=== PATIENT | female | born 1955 | race Caucasian/White ===

== ENCOUNTER 2019-01-05 12:15 | Inpatient (IN) | payer OTHER ==
[2019-01-05 12:54] LABS: WHITE BLOOD COUNT 8.9 10^3/ul (4.8-10.8)
[2019-01-05 12:54] LABS: ABNORMAL IP MESSAGE 1; HEMATOCRIT 21.3 % (37.0-47.0); MEAN CORPUSCULAR HEMOGLOBIN 34.9 pg (29.0-33.0); MEAN CORPUSCULAR HGB CONC 30.5 g/dl (32.0-37.0); MEAN CORPUSCULAR VOLUME 114.5 fl (82.0-101.0); MEAN PLATELET VOLUME 9.5 fl (7.4-10.4); PLATELET COUNT 185 10^3/UL (140-415); RED BLOOD COUNT 1.86 10^6/ul (4.20-5.40); RED CELL DISTRIBUTION WIDTH 14.8 % (11.5-14.5)
[2019-01-05 13:01] LABS: ADD MAN DIFF? YES; HEMOGLOBIN 6.5 g/dl (12.0-16.0); POSITIVE DIFF @See below
[2019-01-05 13:10] LABS: PROTIME 18.2 Sec (11.9-14.9); PT RATIO 1.4
[2019-01-05 13:11] LABS: PARTIAL THROMBOPLASTIN TIME 40.4 Sec (23.0-35.0)
[2019-01-05 13:39] LABS: ANISOCYTOSIS 1+ (0-0); BAND NEUTROPHILS % (M) 1 % (0-4); EOSINOPHILS % (M) 28 % (0-7); LYMPHOCYTES #M 2.5 10^3/ul (0.8-2.9); LYMPHOCYTES % (M) 29 % (15-51); MONOCYTE #M 0.2 10^3/ul (0.3-0.9); MONOCYTES % (M) 3 % (0-11); PLATELET ESTIMATE NORMAL; POIKILOCYTOSIS 1+ (0-0); POLYCHROMASIA 3+ (0-0); SEG NEUT #M 3.5 10^3/ul (1.6-7.5); SEGMENTED NEUTROPHILS (M) % 39 % (39-77); SMUDGE%M 3 % (0-0)
[2019-01-05 14:44] LABS: ALANINE AMINOTRANSFERASE 13 IU/L (13-69); ALBUMIN 2.9 g/dl (3.3-4.9); ALBUMIN/GLOBULIN RATIO 0.76; ALKALINE PHOSPHATASE 90 IU/L (42-121); ANION GAP 8 (5-13); ASPARTATE AMINO TRANSFERASE 31 IU/L (15-46); BILIRUBIN,INDIRECT 0.2 mg/dl (0-1.1); BILIRUBIN,TOTAL 0.2 mg/dl (0.2-1.3); BLOOD UREA NITROGEN 30 mg/dl (7-20); CALCIUM 9.3 mg/dl (8.4-10.2); CARBON DIOXIDE 27 mmol/L (21-31); CHLORIDE 104 mmol/L (97-110); CREATININE 5.48 mg/dl (0.44-1.00); Estimated GFR 8 mL/min (>60); GLUCOSE 91 mg/dl (70-220); POTASSIUM 5.6 mmol/L (3.5-5.1); SODIUM 139 mmol/L (135-144); TOTAL PROTEIN 6.7 g/dl (6.1-8.1)
[2019-01-05 14:55] LABS: TROPONIN-I < 0.012 ng/ml (0.000-0.120)
[2019-01-05] MEDS ORDERED: DEXTROSE 50% 50 ML SYRINGE IV ×3 (15:30→17:00)
[2019-01-05] MEDS: DEXTROSE 50% 50 ML SYRINGE IV (16:02)
[2019-01-05] MEDS: INSULIN REGULAR, HUMAN 100 UNIT/1 ML 3ML VIAL IVP (16:05)
[2019-01-05] MEDS: ALBUTEROL 0.5% (NEB) 2.5 MG/0.5 ML AMP INH (16:28)
[2019-01-05] MEDS ORDERED: DOCUSATE SODIUM 100 MG CAP PO (16:30)
[2019-01-05] MEDS ORDERED: ONDANSETRON 4 MG INJ IV (16:30)
[2019-01-05] MEDS ORDERED: morphine 2 MG INJ IV (16:30)
[2019-01-05] MEDS ORDERED: ACETAMINOPHEN 325 MG TAB PO (16:30)
[2019-01-05] MEDS ORDERED: NITROGLYCERIN (SL) 0.4 MG TAB SL (16:30)
[2019-01-05] MEDS ORDERED: ALBUTEROL/IPRATROPIUM (NEB) 3 ML AMP HHN (16:30)
[2019-01-05] MEDS ORDERED: hydrALAzine 20 MG INJ IV (16:30)
[2019-01-05] MEDS ORDERED: NACL 0.9% 3 ML SYG IV (16:30)
[2019-01-05] MEDS ORDERED: GLUCOSE GEL 15 GRAM TUBE BUCCAL (17:00)
[2019-01-05] MEDS ORDERED: GLUCOSE GEL 15 GRAM TUBE PO ×2 (17:00)
[2019-01-05] MEDS ORDERED: GLUCAGON 1 MG INJ IM (17:00)
[2019-01-05 17:02] LABS: FREE T4 (FREE THYROXINE) 0.97 ng/dl (0.78-2.44)
[2019-01-05] MEDS: INSULIN ASPART [NOVOLOG] 3 ML PEN SC ×2 (18:19→21:00)
[2019-01-05] MEDS: EPOETIN ALFA-EPBX (NON-ESRD 10,000 UNIT/ML VIAL SC (18:22)
[2019-01-05 18:41] LABS: HEMATOCRIT 22.8 % (37.0-47.0)
[2019-01-05 18:51] LABS: HEMOGLOBIN 6.7 g/dl (12.0-16.0)
[2019-01-05 19:06] LABS: IRON 103 ug/dl (35-150)
[2019-01-05 19:15] LABS: % IRON SATURATION 55 % SAT (22-52); TOTAL IRON BINDING CAPACITY 187 ug/dl (241-421)
[2019-01-05 19:21] LABS: LACTIC ACID 4.4 mmol/L (0.5-2.0)
[2019-01-05 20:40] LABS: HEPATITIS B SURFACE ANTIGEN NEGATIVE (NEGATIVE)
[2019-01-05] MEDS: TRIAMCINOLONE ACET 0.1% 15 GM CR TOP (22:22)
[2019-01-05] MEDS: HEPARIN 5,000 UNIT/1 ML VIAL SC (22:34)
[2019-01-05 23:59] LABS: LACTIC ACID 1.2 mmol/L (0.5-2.0)
[2019-01-06] MEDS: INSULIN ASPART [NOVOLOG] 3 ML PEN SC ×5 (01:00→21:00)
[2019-01-06] MEDS: ACCU-CHEK XX (02:00)
[2019-01-06 02:37] LABS: IMMEDIATE SPIN CROSSMATCH 1 1
[2019-01-06] MEDS: HEPARIN 1000 UNITS/ML 10 ML INJ CATHETER (04:58)
[2019-01-06] MEDS: LORAZEPAM 2 MG INJ IV ×3 (05:18→23:20)
[2019-01-06] MEDS: PANTOPRAZOLE 40 MG INJ IV ×2 (06:00→08:45)
[2019-01-06 06:35] LABS: ADD MAN DIFF? NO
[2019-01-06 06:41] LABS: ABNORMAL IP MESSAGE 1; BASOPHILS % 0.3 % (0.0-2.0); EOSINOPHILS # 2.3 10^3/ul (0.0-0.5); EOSINOPHILS % 19.4 % (0.0-7.0); HEMATOCRIT 27.8 % (37.0-47.0); HEMOGLOBIN 8.6 g/dl (12.0-16.0); LYMPHOCYTES # 1.6 10^3/ul (0.8-2.9); LYMPHOCYTES % 13.5 % (15.0-51.0); MEAN CORPUSCULAR HEMOGLOBIN 33.1 pg (29.0-33.0); MEAN CORPUSCULAR HGB CONC 30.9 g/dl (32.0-37.0); MEAN CORPUSCULAR VOLUME 106.9 fl (82.0-101.0); MEAN PLATELET VOLUME 9.1 fl (7.4-10.4); MONOCYTE # 0.6 10^3/ul (0.3-0.9); MONOCYTES % 4.7 % (0.0-11.0); NEUTROPHIL # 7.3 10^3/ul (1.6-7.5); NEUTROPHILS % 61.5 % (39.0-77.0); PLATELET COUNT 193 10^3/UL (140-415); RED CELL DISTRIBUTION WIDTH 18.6 % (11.5-14.5)
[2019-01-06 06:41] LABS: WHITE BLOOD COUNT 11.9 10^3/ul (4.8-10.8)
[2019-01-06 06:55] LABS: POSITIVE DIFF @See below
[2019-01-06 06:58] LABS: HEMOGLOBIN A1C 5.6 % (0-5.9)
[2019-01-06 07:12] LABS: ANION GAP 13 (5-13); BLOOD UREA NITROGEN 21 mg/dl (7-20); CALCIUM 9.2 mg/dl (8.4-10.2); CARBON DIOXIDE 25 mmol/L (21-31); CHLORIDE 102 mmol/L (97-110); CREATININE 4.49 mg/dl (0.44-1.00); Estimated GFR 10 mL/min (>60); GLUCOSE 161 mg/dl (70-220); PHOSPHORUS 3.4 mg/dl (2.5-4.9); POTASSIUM 4.7 mmol/L (3.5-5.1); SODIUM 140 mmol/L (135-144)
[2019-01-06 07:25] LABS: CHOLESTEROL 132 mg/dl (100-200)
[2019-01-06 07:25] LABS: CHOL/HDL RATIO 2.6 RATIO; HDL CHOLESTEROL 50 mg/dl (35-98); LDL CHOLESTEROL,CALCULATED 61 mg/dl; TRIGLYCERIDES 105 mg/dl (0-149)
[2019-01-06] MEDS: HEPARIN 5,000 UNIT/1 ML VIAL SC (08:43)
[2019-01-06] MEDS: TRIAMCINOLONE ACET 0.1% 15 GM CR TOP ×2 (08:44→22:04)
[2019-01-06] MEDS: MULTIVITAMINS THERAPEUTIC TAB PO (14:30)
[2019-01-06] MEDS: ZINC SULFATE 220 MG CAP PO (14:30)
[2019-01-06] MEDS: SEVELAMER CARBONATE 0.8 GM PKT PO (17:39)
[2019-01-06] MEDS: FERROUS SULFATE (EC) 325 MG TAB PO (22:04)
[2019-01-06] MEDS: ATORVASTATIN 10 MG TAB PO (22:04)
[2019-01-07] MEDS: BALSAM PERU/CASTOR OIL 60 GM TUBE TOP ×3 (00:07→21:27)
[2019-01-07] MEDS: PERMETHRIN 5% 60 GM CR TOP (00:07)
[2019-01-07] MEDS: IVERMECTIN 3 MG TAB PO (00:07)
[2019-01-07] MEDS: ACCU-CHEK XX (02:00)
[2019-01-07] MEDS: morphine 2 MG INJ IV (04:15)
[2019-01-07] MEDS: PANTOPRAZOLE 40 MG INJ IV (06:07)
[2019-01-07] MEDS: LORAZEPAM 2 MG INJ IV ×2 (06:08→16:03)
[2019-01-07] MEDS: LEVOTHYROXINE 150 MCG TAB PO (06:08)
[2019-01-07 06:37] LABS: ADD MAN DIFF? NO
[2019-01-07 06:39] LABS: WHITE BLOOD COUNT 11.3 10^3/ul (4.8-10.8)
[2019-01-07 06:39] LABS: ABNORMAL IP MESSAGE 1; BASOPHIL # 0.1 10^3/ul (0.0-0.1); BASOPHILS % 0.4 % (0.0-2.0); EOSINOPHILS # 2.1 10^3/ul (0.0-0.5); EOSINOPHILS % 18.3 % (0.0-7.0); HEMATOCRIT 27.6 % (37.0-47.0); HEMOGLOBIN 8.4 g/dl (12.0-16.0); LYMPHOCYTES # 2.4 10^3/ul (0.8-2.9); LYMPHOCYTES % 21.2 % (15.0-51.0); MEAN CORPUSCULAR HEMOGLOBIN 32.8 pg (29.0-33.0); MEAN CORPUSCULAR HGB CONC 30.4 g/dl (32.0-37.0); MEAN CORPUSCULAR VOLUME 107.8 fl (82.0-101.0); MONOCYTE # 0.8 10^3/ul (0.3-0.9); MONOCYTES % 6.7 % (0.0-11.0); NEUTROPHILS % 52.9 % (39.0-77.0); PLATELET COUNT 175 10^3/UL (140-415); RED BLOOD COUNT 2.56 10^6/ul (4.20-5.40); RED CELL DISTRIBUTION WIDTH 18.7 % (11.5-14.5)
[2019-01-07 06:46] LABS: POSITIVE DIFF @See below
[2019-01-07 07:00] LABS: ANION GAP 13 (5-13); BLOOD UREA NITROGEN 28 mg/dl (7-20); CALCIUM 10.1 mg/dl (8.4-10.2); CARBON DIOXIDE 26 mmol/L (21-31); CHLORIDE 106 mmol/L (97-110); CREATININE 6.35 mg/dl (0.44-1.00); Estimated GFR 7 mL/min (>60); GLUCOSE 123 mg/dl (70-220); POTASSIUM 5.2 mmol/L (3.5-5.1); SODIUM 145 mmol/L (135-144)
[2019-01-07] MEDS: INSULIN ASPART [NOVOLOG] 3 ML PEN SC ×4 (07:00→21:00)
[2019-01-07] MEDS: SEVELAMER CARBONATE 0.8 GM PKT PO ×3 (08:00→17:44)
[2019-01-07] MEDS: MULTIVITAMINS THERAPEUTIC TAB PO (09:00)
[2019-01-07] MEDS: ASPIRIN 81 MG TAB PO (09:00)
[2019-01-07] MEDS: FERROUS SULFATE (EC) 325 MG TAB PO ×2 (09:00→21:26)
[2019-01-07] MEDS: TRIAMCINOLONE ACET 0.1% 15 GM CR TOP (09:00)
[2019-01-07] MEDS: ZINC SULFATE 220 MG CAP PO (09:00)
[2019-01-07] MEDS: MULTIVITAMINS/MINERALS TAB PO (09:00)
[2019-01-07] MEDS: CHOLECALCIFEROL 1,000 UNIT TAB PO (09:00)
[2019-01-07] MEDS: FOLIC ACID 1 MG TAB PO (09:00)
[2019-01-07] MEDS: ASCORBIC ACID 500 MG TAB PO (09:00)
[2019-01-07 10:17] LABS: OCCULT BLOOD STOOL POSITIVE (NEGATIVE)
[2019-01-07] MEDS: ALBUMIN HUMAN 25% 100 ML IV (12:10)
[2019-01-07] MEDS ORDERED: morphine 2 MG INJ IV (14:30)
[2019-01-07] MEDS: HEPARIN 1000 UNITS/ML 10 ML INJ CATHETER (15:06)
[2019-01-07 16:18] LABS: AMMONIA < 9 umol/l (9-30)
[2019-01-07] MEDS ORDERED: LORAZEPAM 2 MG INJ IV (16:30)
[2019-01-07] MEDS: EPOETIN ALFA-EPBX (NON-ESRD 10,000 UNIT/ML VIAL SC (17:39)
[2019-01-07] MEDS: ATORVASTATIN 10 MG TAB PO (21:26)
[2019-01-08] MEDS: LORAZEPAM 2 MG INJ IV ×2 (01:36→12:13)
[2019-01-08] MEDS: ACCU-CHEK XX (02:00)
[2019-01-08] MEDS: HYDROCODONE/APAP (5/325) TAB PO (04:08)
[2019-01-08] MEDS: LEVOTHYROXINE 150 MCG TAB PO (06:35)
[2019-01-08] MEDS: PANTOPRAZOLE 40 MG INJ IV (06:35)
[2019-01-08 08:05] LABS: ADD MAN DIFF? NO
[2019-01-08 08:08] LABS: BASOPHIL # 0.1 10^3/ul (0.0-0.1); BASOPHILS % 0.5 % (0.0-2.0); EOSINOPHILS # 1.8 10^3/ul (0.0-0.5); HEMATOCRIT 28.1 % (37.0-47.0); HEMOGLOBIN 8.5 g/dl (12.0-16.0); LYMPHOCYTES # 2.4 10^3/ul (0.8-2.9); LYMPHOCYTES % 22.3 % (15.0-51.0); MEAN CORPUSCULAR HEMOGLOBIN 32.6 pg (29.0-33.0); MEAN CORPUSCULAR HGB CONC 30.2 g/dl (32.0-37.0); MEAN CORPUSCULAR VOLUME 107.7 fl (82.0-101.0); MEAN PLATELET VOLUME 9.1 fl (7.4-10.4); MONOCYTE # 0.8 10^3/ul (0.3-0.9); MONOCYTES % 7.6 % (0.0-11.0); NEUTROPHIL # 5.8 10^3/ul (1.6-7.5); NEUTROPHILS % 53.2 % (39.0-77.0); PLATELET COUNT 174 10^3/UL (140-415); RED BLOOD COUNT 2.61 10^6/ul (4.20-5.40); RED CELL DISTRIBUTION WIDTH 18.2 % (11.5-14.5)
[2019-01-08 08:08] LABS: WHITE BLOOD COUNT 10.9 10^3/ul (4.8-10.8)
[2019-01-08 08:29] LABS: INR 1.36; PROTIME 16.9 Sec (11.9-14.9); PT RATIO 1.3
[2019-01-08 08:31] LABS: ANION GAP 8 (5-13); BLOOD UREA NITROGEN 21 mg/dl (7-20); CALCIUM 9.6 mg/dl (8.4-10.2); CARBON DIOXIDE 32 mmol/L (21-31); CHLORIDE 99 mmol/L (97-110); CREATININE 4.22 mg/dl (0.44-1.00); Estimated GFR 11 mL/min (>60); GLUCOSE 155 mg/dl (70-220); SODIUM 139 mmol/L (135-144)
[2019-01-08 08:32] LABS: ALANINE AMINOTRANSFERASE 13 IU/L (13-69); ALBUMIN 3.7 g/dl (3.3-4.9); ALKALINE PHOSPHATASE 101 IU/L (42-121); ASPARTATE AMINO TRANSFERASE 21 IU/L (15-46); BILIRUBIN,INDIRECT 0.2 mg/dl (0-1.1); BILIRUBIN,TOTAL 0.2 mg/dl (0.2-1.3); TOTAL PROTEIN 7.3 g/dl (6.1-8.1)
[2019-01-08] MEDS: FOLIC ACID 1 MG TAB PO (08:44)
[2019-01-08] MEDS: TRIAMCINOLONE ACET 0.1% 15 GM CR TOP (08:46)
[2019-01-08] MEDS: CHOLECALCIFEROL 1,000 UNIT TAB PO (08:47)
[2019-01-08] MEDS: MULTIVITAMINS/MINERALS TAB PO (08:47)
[2019-01-08] MEDS: INSULIN ASPART [NOVOLOG] 3 ML PEN SC ×4 (08:47→20:49)
[2019-01-08] MEDS: ASPIRIN 81 MG TAB PO (08:47)
[2019-01-08] MEDS: FERROUS SULFATE (EC) 325 MG TAB PO ×2 (08:47→20:45)
[2019-01-08] MEDS: MULTIVITAMINS THERAPEUTIC TAB PO (08:47)
[2019-01-08] MEDS: ASCORBIC ACID 500 MG TAB PO (08:47)
[2019-01-08] MEDS: ZINC SULFATE 220 MG CAP PO (08:47)
[2019-01-08] MEDS: BALSAM PERU/CASTOR OIL 60 GM TUBE TOP ×2 (08:48→20:50)
[2019-01-08] MEDS: SEVELAMER CARBONATE 0.8 GM PKT PO ×3 (08:48→17:23)
[2019-01-08 14:52] LABS: FOLATE 8.4 ng/ml (2.8-20.0)
[2019-01-08] MEDS: SOD CHLORIDE 0.9% 250 ML IV (18:31)
[2019-01-08] MEDS: ATORVASTATIN 10 MG TAB PO (20:45)
[2019-01-09] MEDS: ACCU-CHEK XX (01:27)
[2019-01-09] MEDS: LORAZEPAM 2 MG INJ IV (05:13)
[2019-01-09] MEDS: PANTOPRAZOLE 40 MG INJ IV (05:13)
[2019-01-09 06:25] LABS: ADD MAN DIFF? NO
[2019-01-09 06:32] LABS: BASOPHIL # 0.1 10^3/ul (0.0-0.1); BASOPHILS % 0.4 % (0.0-2.0); EOSINOPHILS # 1.8 10^3/ul (0.0-0.5); EOSINOPHILS % 12.4 % (0.0-7.0); HEMATOCRIT 30.4 % (37.0-47.0); HEMOGLOBIN 9.3 g/dl (12.0-16.0); LYMPHOCYTES # 2.4 10^3/ul (0.8-2.9); MEAN CORPUSCULAR HGB CONC 30.6 g/dl (32.0-37.0); MEAN CORPUSCULAR VOLUME 107.8 fl (82.0-101.0); MEAN PLATELET VOLUME 9.5 fl (7.4-10.4); MONOCYTE # 0.9 10^3/ul (0.3-0.9); MONOCYTES % 6.6 % (0.0-11.0); NEUTROPHIL # 8.9 10^3/ul (1.6-7.5); PLATELET COUNT 190 10^3/UL (140-415); RED BLOOD COUNT 2.82 10^6/ul (4.20-5.40); RED CELL DISTRIBUTION WIDTH 17.6 % (11.5-14.5)
[2019-01-09 06:32] LABS: WHITE BLOOD COUNT 14.2 10^3/ul (4.8-10.8)
[2019-01-09] MEDS: LEVOTHYROXINE 150 MCG TAB PO (06:47)
[2019-01-09 06:54] LABS: ANION GAP 16 (5-13); BLOOD UREA NITROGEN 31 mg/dl (7-20); CALCIUM 9.6 mg/dl (8.4-10.2); CARBON DIOXIDE 24 mmol/L (21-31); CHLORIDE 102 mmol/L (97-110); CREATININE 5.57 mg/dl (0.44-1.00); Estimated GFR 8 mL/min (>60); GLUCOSE 197 mg/dl (70-220); POTASSIUM 4.5 mmol/L (3.5-5.1); SODIUM 142 mmol/L (135-144)
[2019-01-09] MEDS: INSULIN ASPART [NOVOLOG] 3 ML PEN SC ×4 (07:00→20:38)
[2019-01-09] MEDS: SEVELAMER CARBONATE 0.8 GM PKT PO ×3 (08:00→17:29)
[2019-01-09] MEDS: BALSAM PERU/CASTOR OIL 60 GM TUBE TOP ×2 (08:48→20:39)
[2019-01-09] MEDS: QUETIAPINE 100 MG TAB PO ×2 (09:57→20:37)
[2019-01-09] MEDS: HEPARIN 1000 UNITS/ML 10 ML INJ CATHETER (12:03)
[2019-01-09] MEDS: MULTIVITAMINS/MINERALS TAB PO (12:39)
[2019-01-09] MEDS: ZINC SULFATE 220 MG CAP PO (12:39)
[2019-01-09] MEDS: MULTIVITAMINS THERAPEUTIC TAB PO (12:40)
[2019-01-09] MEDS: FERROUS SULFATE (EC) 325 MG TAB PO ×2 (12:40→20:37)
[2019-01-09] MEDS: ASPIRIN 81 MG TAB PO (12:40)
[2019-01-09] MEDS: FOLIC ACID 1 MG TAB PO (12:40)
[2019-01-09] MEDS: CHOLECALCIFEROL 1,000 UNIT TAB PO (12:41)
[2019-01-09] MEDS: ASCORBIC ACID 500 MG TAB PO (12:53)
[2019-01-09] MEDS: EPOETIN ALFA-EPBX (NON-ESRD 10,000 UNIT/ML VIAL SC (16:21)
[2019-01-09] MEDS: BISACODYL 10 MG SUPP PR (17:33)
[2019-01-09] MEDS: ATORVASTATIN 10 MG TAB PO (20:37)
[2019-01-09] MEDS: HYDROCODONE/APAP (5/325) TAB PO (20:37)
[2019-01-10] MEDS: ACCU-CHEK XX (02:00)
[2019-01-10] MEDS: LEVOTHYROXINE 150 MCG TAB PO (06:21)
[2019-01-10] MEDS: PANTOPRAZOLE (EC) 40 MG TAB PO (06:21)
[2019-01-10 08:39] LABS: ADD MAN DIFF? NO
[2019-01-10] MEDS: MULTIVITAMINS/MINERALS TAB PO (08:45)
[2019-01-10] MEDS: SEVELAMER CARBONATE 0.8 GM PKT PO ×3 (08:45→17:17)
[2019-01-10] MEDS: ASPIRIN 81 MG TAB PO (08:45)
[2019-01-10] MEDS: ZINC SULFATE 220 MG CAP PO (08:45)
[2019-01-10] MEDS: ASCORBIC ACID 500 MG TAB PO (08:45)
[2019-01-10] MEDS: BALSAM PERU/CASTOR OIL 60 GM TUBE TOP ×2 (08:46→21:15)
[2019-01-10] MEDS: FERROUS SULFATE (EC) 325 MG TAB PO ×2 (08:46→21:14)
[2019-01-10] MEDS: CHOLECALCIFEROL 1,000 UNIT TAB PO (08:46)
[2019-01-10] MEDS: FOLIC ACID 1 MG TAB PO (08:46)
[2019-01-10 08:47] LABS: BASOPHIL # 0.1 10^3/ul (0.0-0.1); BASOPHILS % 0.5 % (0.0-2.0); EOSINOPHILS # 1.5 10^3/ul (0.0-0.5); EOSINOPHILS % 13.9 % (0.0-7.0); HEMATOCRIT 26.9 % (37.0-47.0); HEMOGLOBIN 8.1 g/dl (12.0-16.0); LYMPHOCYTES # 1.8 10^3/ul (0.8-2.9); LYMPHOCYTES % 16.4 % (15.0-51.0); MEAN CORPUSCULAR HEMOGLOBIN 33.2 pg (29.0-33.0); MEAN CORPUSCULAR HGB CONC 30.1 g/dl (32.0-37.0); MEAN CORPUSCULAR VOLUME 110.2 fl (82.0-101.0); MEAN PLATELET VOLUME 9.1 fl (7.4-10.4); MONOCYTE # 0.6 10^3/ul (0.3-0.9); MONOCYTES % 5.5 % (0.0-11.0); NEUTROPHIL # 6.9 10^3/ul (1.6-7.5); NEUTROPHILS % 63.2 % (39.0-77.0); PLATELET COUNT 167 10^3/UL (140-415); RED BLOOD COUNT 2.44 10^6/ul (4.20-5.40); RED CELL DISTRIBUTION WIDTH 17.5 % (11.5-14.5)
[2019-01-10 08:47] LABS: WHITE BLOOD COUNT 10.8 10^3/ul (4.8-10.8)
[2019-01-10] MEDS: INSULIN ASPART [NOVOLOG] 3 ML PEN SC ×4 (08:48→21:21)
[2019-01-10 09:01] LABS: ANION GAP 9 (5-13); BLOOD UREA NITROGEN 16 mg/dl (7-20); CALCIUM 9.7 mg/dl (8.4-10.2); CARBON DIOXIDE 29 mmol/L (21-31); CHLORIDE 105 mmol/L (97-110); CREATININE 3.47 mg/dl (0.44-1.00); Estimated GFR 13 mL/min (>60); GLUCOSE 141 mg/dl (70-220); POTASSIUM 4.3 mmol/L (3.5-5.1); SODIUM 143 mmol/L (135-144)
[2019-01-10] MEDS: ATORVASTATIN 10 MG TAB PO (21:14)
[2019-01-10] MEDS: QUETIAPINE 100 MG TAB PO (21:14)
[2019-01-10] MEDS: NA PHOSPHATE/BIPHOS 133 ML ENEMA PR (21:15)
[2019-01-10] MEDS: TRIAMCINOLONE ACET 0.1% 15 GM CR TOP (21:15)
[2019-01-11] MEDS: LORAZEPAM 2 MG INJ IV ×2 (00:48→11:18)
[2019-01-11] MEDS: ACCU-CHEK XX (02:00)
[2019-01-11] MEDS: HALOPERIDOL 5 MG INJ IM (03:28)
[2019-01-11] MEDS: DIPHENHYDRAMINE 50 MG INJ IV (03:35)
[2019-01-11] MEDS: PANTOPRAZOLE (EC) 40 MG TAB PO (06:21)
[2019-01-11] MEDS: LEVOTHYROXINE 150 MCG TAB PO (06:21)
[2019-01-11] MEDS: INSULIN ASPART [NOVOLOG] 3 ML PEN SC ×4 (07:00→21:21)
[2019-01-11 08:30] LABS: ADD MAN DIFF? NO
[2019-01-11 08:37] LABS: BASOPHILS % 0.3 % (0.0-2.0); EOSINOPHILS # 1.8 10^3/ul (0.0-0.5); EOSINOPHILS % 19.3 % (0.0-7.0); HEMATOCRIT 26.2 % (37.0-47.0); HEMOGLOBIN 7.9 g/dl (12.0-16.0); LYMPHOCYTES # 2.2 10^3/ul (0.8-2.9); LYMPHOCYTES % 23.2 % (15.0-51.0); MEAN CORPUSCULAR HEMOGLOBIN 33.5 pg (29.0-33.0); MEAN CORPUSCULAR HGB CONC 30.2 g/dl (32.0-37.0); MEAN PLATELET VOLUME 9.2 fl (7.4-10.4); MONOCYTE # 0.6 10^3/ul (0.3-0.9); MONOCYTES % 6.5 % (0.0-11.0); NEUTROPHIL # 4.7 10^3/ul (1.6-7.5); NEUTROPHILS % 50.2 % (39.0-77.0); PLATELET COUNT 163 10^3/UL (140-415); RED BLOOD COUNT 2.36 10^6/ul (4.20-5.40); RED CELL DISTRIBUTION WIDTH 17.6 % (11.5-14.5)
[2019-01-11 08:37] LABS: WHITE BLOOD COUNT 9.4 10^3/ul (4.8-10.8)
[2019-01-11 08:58] LABS: ANION GAP 12 (5-13); BLOOD UREA NITROGEN 27 mg/dl (7-20); CARBON DIOXIDE 29 mmol/L (21-31); CHLORIDE 104 mmol/L (97-110); CREATININE 5.35 mg/dl (0.44-1.00); Estimated GFR 8 mL/min (>60); GLUCOSE 142 mg/dl (70-220); POTASSIUM 4.3 mmol/L (3.5-5.1); SODIUM 145 mmol/L (135-144)
[2019-01-11] MEDS: BALSAM PERU/CASTOR OIL 60 GM TUBE TOP ×2 (09:21→22:28)
[2019-01-11] MEDS: FOLIC ACID 1 MG TAB PO (09:26)
[2019-01-11] MEDS: ZINC SULFATE 220 MG CAP PO (09:26)
[2019-01-11] MEDS: ASCORBIC ACID 500 MG TAB PO (09:26)
[2019-01-11] MEDS: MULTIVITAMINS/MINERALS TAB PO (09:26)
[2019-01-11] MEDS: SEVELAMER CARBONATE 0.8 GM PKT PO ×3 (09:26→17:10)
[2019-01-11] MEDS: FERROUS SULFATE (EC) 325 MG TAB PO ×2 (09:26→21:16)
[2019-01-11] MEDS: CHOLECALCIFEROL 1,000 UNIT TAB PO (09:26)
[2019-01-11] MEDS: ASPIRIN 81 MG TAB PO (09:26)
[2019-01-11] MEDS: TRIAMCINOLONE ACET 0.1% 15 GM CR TOP (12:10)
[2019-01-11 14:46] LABS: HEMATOCRIT 25.9 % (37.0-47.0); HEMOGLOBIN 7.7 g/dl (12.0-16.0)
[2019-01-11] MEDS ORDERED: SOD CHLORIDE 0.9% 250 ML IV* (16:14)
[2019-01-11] MEDS: MAGNESIUM HYDROXIDE 30ML CUP PO (17:10)
[2019-01-11] MEDS: ATORVASTATIN 10 MG TAB PO (21:16)
[2019-01-11] MEDS: QUETIAPINE 100 MG TAB PO (21:16)
[2019-01-11] MEDS: PERMETHRIN 5% 60 GM CR TOP (21:23)
[2019-01-12] MEDS: ACCU-CHEK XX (01:56)
[2019-01-12 04:09] LABS: IMMEDIATE SPIN CROSSMATCH 1 1
[2019-01-12] MEDS: PANTOPRAZOLE (EC) 40 MG TAB PO ×2 (06:00→09:23)
[2019-01-12] MEDS: HEPARIN 1000 UNITS/ML 10 ML INJ CATHETER (06:38)
[2019-01-12] MEDS: INSULIN ASPART [NOVOLOG] 3 ML PEN SC ×4 (08:11→21:00)
[2019-01-12] MEDS: ASPIRIN 81 MG TAB PO (09:22)
[2019-01-12] MEDS: MULTIVITAMINS/MINERALS TAB PO (09:23)
[2019-01-12] MEDS: LEVOTHYROXINE 150 MCG TAB PO (09:23)
[2019-01-12] MEDS: FOLIC ACID 1 MG TAB PO (09:23)
[2019-01-12] MEDS: SEVELAMER CARBONATE 0.8 GM PKT PO ×4 (09:23→17:38)
[2019-01-12] MEDS: FERROUS SULFATE (EC) 325 MG TAB PO ×2 (09:23→21:01)
[2019-01-12] MEDS: ZINC SULFATE 220 MG CAP PO (09:23)
[2019-01-12] MEDS: ASCORBIC ACID 500 MG TAB PO (09:23)
[2019-01-12] MEDS: CHOLECALCIFEROL 1,000 UNIT TAB PO (09:23)
[2019-01-12] MEDS: BALSAM PERU/CASTOR OIL 60 GM TUBE TOP ×2 (09:24→21:01)
[2019-01-12 10:14] LABS: ADD MAN DIFF? NO
[2019-01-12 10:18] LABS: BASOPHILS % 0.5 % (0.0-2.0); EOSINOPHILS # 1.5 10^3/ul (0.0-0.5); EOSINOPHILS % 18.1 % (0.0-7.0); HEMATOCRIT 31.6 % (37.0-47.0); HEMOGLOBIN 9.8 g/dl (12.0-16.0); LYMPHOCYTES # 1.2 10^3/ul (0.8-2.9); LYMPHOCYTES % 14.5 % (15.0-51.0); MEAN CORPUSCULAR HEMOGLOBIN 33.6 pg (29.0-33.0); MEAN CORPUSCULAR VOLUME 108.2 fl (82.0-101.0); MEAN PLATELET VOLUME 9.1 fl (7.4-10.4); MONOCYTE # 0.5 10^3/ul (0.3-0.9); MONOCYTES % 5.3 % (0.0-11.0); NEUTROPHIL # 5.2 10^3/ul (1.6-7.5); NEUTROPHILS % 61.1 % (39.0-77.0); PLATELET COUNT 162 10^3/UL (140-415); RED BLOOD COUNT 2.92 10^6/ul (4.20-5.40); RED CELL DISTRIBUTION WIDTH 18.2 % (11.5-14.5)
[2019-01-12 10:18] LABS: WHITE BLOOD COUNT 8.4 10^3/ul (4.8-10.8)
[2019-01-12 10:47] LABS: ANION GAP 8 (5-13); BLOOD UREA NITROGEN 14 mg/dl (7-20); CARBON DIOXIDE 26 mmol/L (21-31); CHLORIDE 107 mmol/L (97-110); CREATININE 3.11 mg/dl (0.44-1.00); Estimated GFR 15 mL/min (>60); GLUCOSE 260 mg/dl (70-220); POTASSIUM 4.1 mmol/L (3.5-5.1); SODIUM 141 mmol/L (135-144)
[2019-01-12] MEDS: LORAZEPAM 2 MG INJ IM (11:16)
[2019-01-12] MEDS: EPOETIN ALFA-EPBX (NON-ESRD 10,000 UNIT/ML VIAL SC (17:28)
[2019-01-12] MEDS: QUETIAPINE 100 MG TAB PO (21:01)
[2019-01-12] MEDS: ATORVASTATIN 10 MG TAB PO (21:01)
[2019-01-13] MEDS: ACCU-CHEK XX (02:00)
[2019-01-13] MEDS: LORAZEPAM 2 MG INJ IM ×2 (02:40→10:05)
[2019-01-13] MEDS: LEVOTHYROXINE 150 MCG TAB PO (06:02)
[2019-01-13] MEDS: PANTOPRAZOLE (EC) 40 MG TAB PO (06:02)
[2019-01-13] MEDS: INSULIN ASPART [NOVOLOG] 3 ML PEN SC ×2 (08:50→12:49)
[2019-01-13] MEDS: ZINC SULFATE 220 MG CAP PO (08:51)
[2019-01-13] MEDS: SEVELAMER CARBONATE 0.8 GM PKT PO ×2 (08:51→12:54)
[2019-01-13] MEDS: CHOLECALCIFEROL 1,000 UNIT TAB PO (08:51)
[2019-01-13] MEDS: FOLIC ACID 1 MG TAB PO (08:52)
[2019-01-13] MEDS: FERROUS SULFATE (EC) 325 MG TAB PO (08:52)
[2019-01-13] MEDS: ASCORBIC ACID 500 MG TAB PO (08:52)
[2019-01-13] MEDS: MULTIVITAMINS/MINERALS TAB PO (08:52)
[2019-01-13] MEDS: ASPIRIN 81 MG TAB PO (08:52)
[2019-01-13] MEDS: BALSAM PERU/CASTOR OIL 60 GM TUBE TOP (09:03)
[2019-01-13] MEDS: ALBUMIN HUMAN 25% 100 ML IV (11:12)
[2019-01-13] MEDS: HEPARIN 1000 UNITS/ML 10 ML INJ CATHETER (11:48)
[2019-01-13 15:13] LABS: ADD MAN DIFF? NO
[2019-01-13 15:15] LABS: BASOPHILS % 0.5 % (0.0-2.0); EOSINOPHILS # 1.6 10^3/ul (0.0-0.5); EOSINOPHILS % 20.2 % (0.0-7.0); HEMATOCRIT 31.4 % (37.0-47.0); HEMOGLOBIN 9.8 g/dl (12.0-16.0); LYMPHOCYTES # 1.5 10^3/ul (0.8-2.9); LYMPHOCYTES % 18.7 % (15.0-51.0); MEAN CORPUSCULAR HEMOGLOBIN 33.7 pg (29.0-33.0); MEAN CORPUSCULAR HGB CONC 31.2 g/dl (32.0-37.0); MEAN CORPUSCULAR VOLUME 107.9 fl (82.0-101.0); MEAN PLATELET VOLUME 9.8 fl (7.4-10.4); MONOCYTE # 0.6 10^3/ul (0.3-0.9); MONOCYTES % 7.2 % (0.0-11.0); NEUTROPHIL # 4.3 10^3/ul (1.6-7.5); PLATELET COUNT 194 10^3/UL (140-415); RED BLOOD COUNT 2.91 10^6/ul (4.20-5.40); RED CELL DISTRIBUTION WIDTH 18.6 % (11.5-14.5)
[2019-01-13 15:35] LABS: ANION GAP 8 (5-13); BLOOD UREA NITROGEN 8 mg/dl (7-20); CALCIUM 9.4 mg/dl (8.4-10.2); CARBON DIOXIDE 27 mmol/L (21-31); CHLORIDE 106 mmol/L (97-110); CREATININE 1.82 mg/dl (0.44-1.00); Estimated GFR 28 mL/min (>60); GLUCOSE 158 mg/dl (70-220); POTASSIUM 4.1 mmol/L (3.5-5.1); SODIUM 141 mmol/L (135-144)
== END 2019-01-13 16:00 | DRG 91 ==
LOC: 5EC 01-11 17:45 → TEL 01-06 09:16 → 5EC 01-11 23:05 → E/R 12:15 → 5EC 01-06 19:55 → TEL 15:45
PROC: 5A1D70Z Performance of Urinary Filtration, Intermittent, Less than 6 Hours Per Day (ICD-10-PCS; principal; 2019-01-06)
PROC: 30233N1 Transfusion of Nonautologous Red Blood Cells into Peripheral Vein, Percutaneous Approach (ICD-10-PCS; 2019-01-06)
DX: G92 Toxic encephalopathy (principal); N18.6 End stage renal disease; I12.0 Hypertensive chronic kidney disease with stage 5 chronic kidney disease or end stage renal disease; E44.0 Moderate protein-calorie malnutrition; E87.5 Hyperkalemia; F25.9 Schizoaffective disorder, unspecified; Z99.2 Dependence on renal dialysis; F41.9 Anxiety disorder, unspecified; I25.10 Atherosclerotic heart disease of native coronary artery without angina pectoris; E78.5 Hyperlipidemia, unspecified; B86 Scabies; E03.9 Hypothyroidism, unspecified; E11.22 Type 2 diabetes mellitus with diabetic chronic kidney disease; D63.1 Anemia in chronic kidney disease; Z68.21 Body mass index [BMI] 21.0-21.9, adult; T50.905A Adverse effect of unspecified drugs, medicaments and biological substances, initial encounter
CPT/HCPCS: 36430; 70450; 71045; 74018; 76705; 80048; 80053; 80061; 80076; 82140; 82270; 82607; 82728; 82746; 82962; 83036; 83540; 83605; 83735; 84100; 84439; 84443; 84484; 85014; 85018; 85025; 85610; 85730; 86644; 86850; 86900; 86901; 86920; 87040-91; 87045; 87340; 90935; 92526; 92610; 93005; 94664; 99285-25

== ENCOUNTER 2019-02-20 06:17 | Inpatient (IN) | payer OTHER, MEDICAID ==
[2019-02-20] MEDS: ONDANSETRON 4 MG INJ IV (07:26)
[2019-02-20] MEDS: morphine 4 MG/ML VIAL IV (07:27)
[2019-02-20] MEDS: SOD CHLORIDE 0.9% 500 ML IV ×5 (07:27→17:45)
[2019-02-20 07:40] LABS: ADD MAN DIFF? NO
[2019-02-20 07:43] LABS: BASOPHILS % 0.4 % (0.0-2.0); EOSINOPHILS % 0.4 % (0.0-7.0); HEMATOCRIT 43.6 % (37.0-47.0); HEMOGLOBIN 13.9 g/dl (12.0-16.0); LYMPHOCYTES # 0.6 10^3/ul (0.8-2.9); LYMPHOCYTES % 8.2 % (15.0-51.0); MEAN CORPUSCULAR HEMOGLOBIN 31.8 pg (29.0-33.0); MEAN CORPUSCULAR HGB CONC 31.9 g/dl (32.0-37.0); MEAN CORPUSCULAR VOLUME 99.8 fl (82.0-101.0); MEAN PLATELET VOLUME 9.4 fl (7.4-10.4); MONOCYTE # 0.1 10^3/ul (0.3-0.9); MONOCYTES % 1.6 % (0.0-11.0); NEUTROPHIL # 6.6 10^3/ul (1.6-7.5); PLATELET COUNT 134 10^3/UL (140-415); RED BLOOD COUNT 4.37 10^6/ul (4.20-5.40)
[2019-02-20 07:43] LABS: WHITE BLOOD COUNT 7.5 10^3/ul (4.8-10.8)
[2019-02-20 07:57] LABS: ALBUMIN 3.4 g/dl (3.3-4.9); ALBUMIN/GLOBULIN RATIO 0.73; ALKALINE PHOSPHATASE 159 IU/L (42-121); ANION GAP 21 (5-13); ASPARTATE AMINO TRANSFERASE 12 IU/L (15-46); BILIRUBIN,INDIRECT 0.1 mg/dl (0-1.1); BILIRUBIN,TOTAL 0.1 mg/dl (0.2-1.3); BLOOD UREA NITROGEN 90 mg/dl (7-20); CALCIUM 10.4 mg/dl (8.4-10.2); CARBON DIOXIDE 14 mmol/L (21-31); CHLORIDE 99 mmol/L (97-110); CREATININE 11.01 mg/dl (0.44-1.00); Estimated GFR 4 mL/min (>60); GLUCOSE 200 mg/dl (70-220); LIPASE 37 U/L (23-300); POTASSIUM 5.8 mmol/L (3.5-5.1); SODIUM 134 mmol/L (135-144)
[2019-02-20 07:58] LABS: ALANINE AMINOTRANSFERASE < 6 IU/L (13-69)
[2019-02-20 08:02] LABS: INR 1.19; PARTIAL THROMBOPLASTIN TIME 30.8 Sec (23.0-35.0); PROTIME 15.2 Sec (11.9-14.9); PT RATIO 1.2
[2019-02-20] MEDS ORDERED: ONDANSETRON 4 MG INJ IV ×2 (10:30→14:30)
[2019-02-20] MEDS ORDERED: ACETAMINOPHEN 325 MG TAB PO ×2 (10:30→14:30)
[2019-02-20] MEDS: CEFEPIME 2GM/50 ML (PMX) 50 ML IVPB (11:26)
[2019-02-20] MEDS: SODIUM CHLORIDE 0.9% 1L BAG IV* (11:26)
[2019-02-20] MEDS: ACETAMINOPHEN 650 MG SUPP PR (11:27)
[2019-02-20 11:31] LABS: ADD UMIC YES; UR ASCORBIC ACID NEGATIVE (NEGATIVE); UR BILIRUBIN (Dip) NEGATIVE (NEGATIVE); UR BLOOD (Dip) 2+ mg/dL (NEGATIVE); UR CLARITY TURBID (CLEAR); UR COLOR YELLOW (YELLOW); UR GLUCOSE (Dip) 1+ mg/dL (NEGATIVE); UR KETONES (Dip) NEGATIVE (NEGATIVE); UR LEUKOCYTE ESTERASE (Dip) 3+ Leu/ul (NEGATIVE); UR NITRITE (Dip) NEGATIVE (NEGATIVE); UR NONSQUAMOUS EPITHELIAL CELL 3 /HPF (NONE SEEN); UR RBC 124 /HPF (0-5); UR TOTAL PROTEIN (Dip) 2+ mg/dl (NEGATIVE); UR UROBILINOGEN (Dip) NEGATIVE (NEGATIVE); UR WBC > 182 /HPF (0-5)
[2019-02-20] MEDS: VANCOMYCIN 1 GM (PMX) 250 ML IVPB (12:03)
[2019-02-20 13:51] LABS: HEPATITIS B SURFACE ANTIGEN NEGATIVE (NEGATIVE)
[2019-02-20 13:54] LABS: LACTIC ACID 2.6 mmol/L (0.5-2.0)
[2019-02-20] MEDS: LIDOCAINE 1% (MPF) 5 ML VIAL SC (14:00)
[2019-02-20] MEDS: SOD CHLORIDE 0.9% 1,000 ML IV (14:00)
[2019-02-20] MEDS ORDERED: HYDROCODONE/APAP (5/325) TAB PO (14:30)
[2019-02-20] MEDS ORDERED: GLUCOSE GEL 15 GRAM TUBE PO ×2 (14:30)
[2019-02-20] MEDS ORDERED: ZOLPIDEM 5 MG TAB PO (14:30)
[2019-02-20] MEDS ORDERED: GLUCAGON 1 MG INJ IM (14:30)
[2019-02-20] MEDS ORDERED: GLUCOSE GEL 15 GRAM TUBE BUCCAL (14:30)
[2019-02-20] MEDS ORDERED: NACL 0.9% 3 ML SYG IV (14:30)
[2019-02-20] MEDS ORDERED: DOCUSATE SODIUM 100 MG CAP PO (14:30)
[2019-02-20] MEDS ORDERED: DEXTROSE 50% 50 ML SYRINGE IV ×2 (14:30)
[2019-02-20 14:44] LABS: LACTIC ACID 2.3 mmol/L (0.5-2.0)
[2019-02-20] MEDS: CEFTRIAXONE 1 GM/50 ML (PMX) 50 ML IVPB (17:48)
[2019-02-20] MEDS: INSULIN ASPART [NOVOLOG] 3 ML PEN SC ×2 (17:52→20:36)
[2019-02-20] MEDS: ALBUMIN HUMAN 25% 100 ML IV (20:16)
[2019-02-20] MEDS: LORAZEPAM 2 MG INJ IV (22:50)
[2019-02-20] MEDS: NA BICARBONATE 8.4% 50 ML SYG IV (22:50)
[2019-02-20] MEDS: HALOPERIDOL 5 MG INJ IM (23:22)
[2019-02-20 23:45] LABS: ANION GAP 12 (5-13); BLOOD UREA NITROGEN 93 mg/dl (7-20); CALCIUM 9.6 mg/dl (8.4-10.2); CARBON DIOXIDE 21 mmol/L (21-31); CHLORIDE 105 mmol/L (97-110); CREATININE 9.53 mg/dl (0.44-1.00); Estimated GFR 4 mL/min (>60); GLUCOSE 141 mg/dl (70-220); POTASSIUM 5.8 mmol/L (3.5-5.1); SODIUM 138 mmol/L (135-144)
[2019-02-21] MEDS: NORepinephrine 32 MG in DEXTROSE 5% 218 ML IV (00:42)
[2019-02-21] MEDS: LORAZEPAM 2 MG INJ IV ×2 (00:58→23:57)
[2019-02-21] MEDS: CALCIUM GLUCONATE 10% 1 GM in DEXTROSE 5% 100 ML IVPB (01:11)
[2019-02-21] MEDS: INSULIN ASPART [NOVOLOG] 3 ML PEN SC ×6 (01:18→21:16)
[2019-02-21] MEDS: ACCU-CHEK XX (01:19)
[2019-02-21] MEDS ORDERED: VANCOMYCIN IV PER PHARMACY XX (01:30)
[2019-02-21] MEDS: VANCOMYCIN 500 MG (PMX) 100 ML IVPB (02:52)
[2019-02-21 06:20] LABS: ADD MAN DIFF? NO
[2019-02-21 06:24] LABS: WHITE BLOOD COUNT 20.2 10^3/ul (4.8-10.8)
[2019-02-21 06:24] LABS: ABNORMAL IP MESSAGE 1; BASOPHIL # 0.1 10^3/ul (0.0-0.1); BASOPHILS % 0.3 % (0.0-2.0); EOSINOPHILS % 0.1 % (0.0-7.0); HEMATOCRIT 36.8 % (37.0-47.0); HEMOGLOBIN 11.8 g/dl (12.0-16.0); LYMPHOCYTES # 0.6 10^3/ul (0.8-2.9); LYMPHOCYTES % 2.7 % (15.0-51.0); MEAN CORPUSCULAR HEMOGLOBIN 31.7 pg (29.0-33.0); MEAN CORPUSCULAR HGB CONC 32.1 g/dl (32.0-37.0); MEAN CORPUSCULAR VOLUME 98.9 fl (82.0-101.0); MEAN PLATELET VOLUME 10.2 fl (7.4-10.4); MONOCYTE # 0.5 10^3/ul (0.3-0.9); MONOCYTES % 2.4 % (0.0-11.0); NEUTROPHIL # 18.9 10^3/ul (1.6-7.5); NEUTROPHILS % 93.9 % (39.0-77.0); PLATELET COUNT 136 10^3/UL (140-415); RED BLOOD COUNT 3.72 10^6/ul (4.20-5.40); RED CELL DISTRIBUTION WIDTH 17.4 % (11.5-14.5)
[2019-02-21 06:37] LABS: POSITIVE DIFF @See below
[2019-02-21 08:16] LABS: ANION GAP 15 (5-13); BLOOD UREA NITROGEN 95 mg/dl (7-20); CALCIUM 9.8 mg/dl (8.4-10.2); CARBON DIOXIDE 16 mmol/L (21-31); CHLORIDE 107 mmol/L (97-110); CREATININE 10.63 mg/dl (0.44-1.00); Estimated GFR 4 mL/min (>60); GLUCOSE 147 mg/dl (70-220); MAGNESIUM 2.4 mg/dl (1.7-2.5); SODIUM 138 mmol/L (135-144)
[2019-02-21] MEDS: ALTEPLASE (CATHFLO) 2 MG INJ CATHETER ×3 (09:56→18:24)
[2019-02-21] MEDS: CEFTRIAXONE 1 GM/50 ML (PMX) 50 ML IVPB (14:10)
[2019-02-21] MEDS: SOD CHLORIDE 0.9% 1,000 ML IV (14:10)
[2019-02-22] MEDS: ACCU-CHEK XX (02:16)
[2019-02-22] MEDS: INSULIN ASPART [NOVOLOG] 3 ML PEN SC ×6 (02:16→20:30)
[2019-02-22 05:05] LABS: ADD MAN DIFF? NO
[2019-02-22 05:14] LABS: ABNORMAL IP MESSAGE 1; BASOPHIL # 0.1 10^3/ul (0.0-0.1); BASOPHILS % 0.4 % (0.0-2.0); EOSINOPHILS # 0.1 10^3/ul (0.0-0.5); EOSINOPHILS % 1.1 % (0.0-7.0); HEMATOCRIT 37.5 % (37.0-47.0); HEMOGLOBIN 11.7 g/dl (12.0-16.0); LYMPHOCYTES # 1.1 10^3/ul (0.8-2.9); MEAN CORPUSCULAR HEMOGLOBIN 31.4 pg (29.0-33.0); MEAN CORPUSCULAR HGB CONC 31.2 g/dl (32.0-37.0); MEAN CORPUSCULAR VOLUME 100.5 fl (82.0-101.0); MONOCYTE # 0.7 10^3/ul (0.3-0.9); MONOCYTES % 5.5 % (0.0-11.0); NEUTROPHIL # 10.5 10^3/ul (1.6-7.5); NEUTROPHILS % 83.3 % (39.0-77.0); PLATELET COUNT 98 10^3/UL (140-415); RED BLOOD COUNT 3.73 10^6/ul (4.20-5.40); RED CELL DISTRIBUTION WIDTH 17.7 % (11.5-14.5)
[2019-02-22 05:14] LABS: WHITE BLOOD COUNT 12.6 10^3/ul (4.8-10.8)
[2019-02-22 05:34] LABS: ANION GAP 12 (5-13); BLOOD UREA NITROGEN 51 mg/dl (7-20); CALCIUM 9.6 mg/dl (8.4-10.2); CARBON DIOXIDE 22 mmol/L (21-31); CHLORIDE 103 mmol/L (97-110); Estimated GFR 7 mL/min (>60); GLUCOSE 152 mg/dl (70-220); MAGNESIUM 2.2 mg/dl (1.7-2.5); PHOSPHORUS 4.3 mg/dl (2.5-4.9); POTASSIUM 4.9 mmol/L (3.5-5.1); SODIUM 137 mmol/L (135-144)
[2019-02-22 05:35] LABS: POSITIVE DIFF @See below
[2019-02-22] MEDS: LORAZEPAM 2 MG INJ IV ×2 (10:22→21:44)
[2019-02-22] MEDS: HEPARIN 1000 UNITS/ML 10 ML INJ CATHETER ×2 (13:11→13:45)
[2019-02-22] MEDS: MUPIROCIN 2% 22 GM OINT TOP ×2 (13:47→23:47)
[2019-02-22] MEDS: SOD CHLORIDE 0.9% 1,000 ML IV (13:47)
[2019-02-22] MEDS: CEFTRIAXONE 1 GM/50 ML (PMX) 50 ML IVPB (13:48)
[2019-02-23] MEDS: INSULIN ASPART [NOVOLOG] 3 ML PEN SC ×6 (01:00→21:00)
[2019-02-23] MEDS: ACCU-CHEK XX (02:00)
[2019-02-23 05:32] LABS: ADD MAN DIFF? NO
[2019-02-23 05:35] LABS: WHITE BLOOD COUNT 8.9 10^3/ul (4.8-10.8)
[2019-02-23 05:35] LABS: ABNORMAL IP MESSAGE 1; BASOPHIL # 0.1 10^3/ul (0.0-0.1); BASOPHILS % 0.6 % (0.0-2.0); EOSINOPHILS # 0.2 10^3/ul (0.0-0.5); EOSINOPHILS % 2.7 % (0.0-7.0); HEMATOCRIT 37.5 % (37.0-47.0); HEMOGLOBIN 11.6 g/dl (12.0-16.0); LYMPHOCYTES # 1.5 10^3/ul (0.8-2.9); LYMPHOCYTES % 16.3 % (15.0-51.0); MEAN CORPUSCULAR HEMOGLOBIN 31.4 pg (29.0-33.0); MEAN CORPUSCULAR HGB CONC 30.9 g/dl (32.0-37.0); MEAN CORPUSCULAR VOLUME 101.6 fl (82.0-101.0); MEAN PLATELET VOLUME 9.9 fl (7.4-10.4); MONOCYTE # 0.6 10^3/ul (0.3-0.9); MONOCYTES % 6.4 % (0.0-11.0); NEUTROPHIL # 6.5 10^3/ul (1.6-7.5); NEUTROPHILS % 73.4 % (39.0-77.0); PLATELET COUNT 85 10^3/UL (140-415); RED BLOOD COUNT 3.69 10^6/ul (4.20-5.40); RED CELL DISTRIBUTION WIDTH 17.6 % (11.5-14.5)
[2019-02-23 05:40] LABS: POSITIVE DIFF @See below
[2019-02-23] MEDS: LORAZEPAM 2 MG INJ IV ×2 (05:42→21:55)
[2019-02-23 05:49] LABS: ANION GAP 9 (5-13); BLOOD UREA NITROGEN 28 mg/dl (7-20); CALCIUM 9.4 mg/dl (8.4-10.2); CARBON DIOXIDE 26 mmol/L (21-31); CHLORIDE 104 mmol/L (97-110); Estimated GFR 10 mL/min (>60); GLUCOSE 129 mg/dl (70-220); MAGNESIUM 2.1 mg/dl (1.7-2.5); PHOSPHORUS 3.7 mg/dl (2.5-4.9); POTASSIUM 4.1 mmol/L (3.5-5.1); SODIUM 139 mmol/L (135-144)
[2019-02-23] MEDS: MUPIROCIN 2% 22 GM OINT TOP ×2 (10:29→21:55)
[2019-02-23] MEDS: CEFTRIAXONE 1 GM/50 ML (PMX) 50 ML IVPB (15:23)
[2019-02-23] MEDS: HALOPERIDOL 5 MG INJ IM (23:12)
[2019-02-24] MEDS: HEPARIN 1000 UNITS/ML 10 ML INJ CATHETER (00:08)
[2019-02-24] MEDS: INSULIN ASPART [NOVOLOG] 3 ML PEN SC ×6 (01:00→21:01)
[2019-02-24] MEDS: ACCU-CHEK XX (02:06)
[2019-02-24 05:08] LABS: ADD MAN DIFF? NO
[2019-02-24 05:10] LABS: WHITE BLOOD COUNT 8.8 10^3/ul (4.8-10.8)
[2019-02-24 05:10] LABS: ABNORMAL IP MESSAGE 1; BASOPHIL # 0.1 10^3/ul (0.0-0.1); BASOPHILS % 0.8 % (0.0-2.0); EOSINOPHILS # 0.2 10^3/ul (0.0-0.5); EOSINOPHILS % 1.8 % (0.0-7.0); HEMATOCRIT 41.9 % (37.0-47.0); HEMOGLOBIN 12.9 g/dl (12.0-16.0); LYMPHOCYTES # 1.8 10^3/ul (0.8-2.9); LYMPHOCYTES % 20.1 % (15.0-51.0); MEAN CORPUSCULAR HEMOGLOBIN 31.8 pg (29.0-33.0); MEAN CORPUSCULAR HGB CONC 30.8 g/dl (32.0-37.0); MEAN CORPUSCULAR VOLUME 103.2 fl (82.0-101.0); MEAN PLATELET VOLUME 9.1 fl (7.4-10.4); MONOCYTE # 0.7 10^3/ul (0.3-0.9); MONOCYTES % 7.6 % (0.0-11.0); NEUTROPHIL # 6.1 10^3/ul (1.6-7.5); NEUTROPHILS % 69.1 % (39.0-77.0); PLATELET COUNT 67 10^3/UL (140-415); RED BLOOD COUNT 4.06 10^6/ul (4.20-5.40); RED CELL DISTRIBUTION WIDTH 17.7 % (11.5-14.5)
[2019-02-24 05:11] LABS: POSITIVE DIFF @See below
[2019-02-24 05:31] LABS: ANION GAP 15 (5-13); BLOOD UREA NITROGEN 16 mg/dl (7-20); CALCIUM 9.3 mg/dl (8.4-10.2); CARBON DIOXIDE 23 mmol/L (21-31); CHLORIDE 102 mmol/L (97-110); CREATININE 3.29 mg/dl (0.44-1.00); Estimated GFR 14 mL/min (>60); GLUCOSE 126 mg/dl (70-220); PHOSPHORUS 2.7 mg/dl (2.5-4.9); POTASSIUM 3.9 mmol/L (3.5-5.1); SODIUM 140 mmol/L (135-144)
[2019-02-24 05:33] LABS: VANCOMYCIN,RANDOM 7.1 ug/ml
[2019-02-24] MEDS: MUPIROCIN 2% 22 GM OINT TOP ×2 (08:22→20:58)
[2019-02-24] MEDS ORDERED: FAMOTIDINE 20 MG INJ (09:08)
[2019-02-24] MEDS: LIDOCAINE 1% (MPF) 5 ML VIAL (15:28)
[2019-02-24] MEDS: VANCOMYCIN 1 GM 250 ML IVPB (16:43)
[2019-02-24] MEDS: SOD CHLORIDE 0.9% 250 ML IV (20:55)
[2019-02-24 22:42] LABS: LACTIC ACID 1.5 mmol/L (0.5-2.0)
[2019-02-24 23:35] LABS: ANION GAP 9 (5-13); BLOOD UREA NITROGEN 27 mg/dl (7-20); CALCIUM 8.8 mg/dl (8.4-10.2); CARBON DIOXIDE 27 mmol/L (21-31); CHLORIDE 100 mmol/L (97-110); CREATININE 4.16 mg/dl (0.44-1.00); Estimated GFR 11 mL/min (>60); GLUCOSE 186 mg/dl (70-220); POTASSIUM 3.4 mmol/L (3.5-5.1); SODIUM 136 mmol/L (135-144)
[2019-02-25] MEDS: POTASSIUM CHLORIDE 20 MEQ POWDER FOR ORAL SOLN PO (00:24)
[2019-02-25] MEDS: INSULIN ASPART [NOVOLOG] 3 ML PEN SC ×6 (00:24→21:00)
[2019-02-25] MEDS: POTASSIUM CHLORIDE 100 ML IVPB ×2 (00:59→03:42)
[2019-02-25] MEDS: ACCU-CHEK XX (02:00)
[2019-02-25 07:12] LABS: ADD MAN DIFF? NO
[2019-02-25 07:15] LABS: WHITE BLOOD COUNT 6.7 10^3/ul (4.8-10.8)
[2019-02-25 07:15] LABS: ABNORMAL IP MESSAGE 1; BASOPHILS % 0.6 % (0.0-2.0); EOSINOPHILS # 0.2 10^3/ul (0.0-0.5); EOSINOPHILS % 2.4 % (0.0-7.0); HEMATOCRIT 39.7 % (37.0-47.0); HEMOGLOBIN 12.1 g/dl (12.0-16.0); LYMPHOCYTES # 1.5 10^3/ul (0.8-2.9); LYMPHOCYTES % 22.1 % (15.0-51.0); MEAN CORPUSCULAR HEMOGLOBIN 31.3 pg (29.0-33.0); MEAN CORPUSCULAR HGB CONC 30.5 g/dl (32.0-37.0); MEAN CORPUSCULAR VOLUME 102.6 fl (82.0-101.0); MONOCYTE # 0.5 10^3/ul (0.3-0.9); MONOCYTES % 7.3 % (0.0-11.0); NEUTROPHIL # 4.5 10^3/ul (1.6-7.5); NEUTROPHILS % 66.9 % (39.0-77.0); PLATELET COUNT 82 10^3/UL (140-415); RED BLOOD COUNT 3.87 10^6/ul (4.20-5.40); RED CELL DISTRIBUTION WIDTH 17.1 % (11.5-14.5)
[2019-02-25 07:20] LABS: POSITIVE DIFF @See below
[2019-02-25 07:45] LABS: ALANINE AMINOTRANSFERASE 13 IU/L (13-69); ALBUMIN 3.1 g/dl (3.3-4.9); ALBUMIN/GLOBULIN RATIO 0.75; ALKALINE PHOSPHATASE 101 IU/L (42-121); ANION GAP 12 (5-13); ASPARTATE AMINO TRANSFERASE 16 IU/L (15-46); BILIRUBIN,INDIRECT 0.2 mg/dl (0-1.1); BILIRUBIN,TOTAL 0.2 mg/dl (0.2-1.3); BLOOD UREA NITROGEN 28 mg/dl (7-20); CALCIUM 9.4 mg/dl (8.4-10.2); CARBON DIOXIDE 23 mmol/L (21-31); CHLORIDE 103 mmol/L (97-110); CREATININE 4.77 mg/dl (0.44-1.00); Estimated GFR 9 mL/min (>60); GLUCOSE 151 mg/dl (70-220); PHOSPHORUS 3.8 mg/dl (2.5-4.9); POTASSIUM 4.8 mmol/L (3.5-5.1); SODIUM 138 mmol/L (135-144); TOTAL PROTEIN 7.2 g/dl (6.1-8.1)
[2019-02-25] MEDS: MUPIROCIN 2% 22 GM OINT TOP ×2 (08:56→21:13)
[2019-02-25] MEDS ORDERED: RIFAMPIN IVPB (09:00)
[2019-02-25] MEDS ORDERED: DEXTROSE 5% IVPB (09:00)
[2019-02-25] MEDS: RIFAMPIN IVPB ×2 (12:02→21:31)
[2019-02-25] MEDS: SOD CHLORIDE 0.9% IVPB ×2 (12:02→21:31)
[2019-02-25] MEDS: morphine 2 MG INJ IV (14:10)
[2019-02-26] MEDS: INSULIN ASPART [NOVOLOG] 3 ML PEN SC ×6 (01:00→20:27)
[2019-02-26] MEDS: ACCU-CHEK XX (02:00)
[2019-02-26] MEDS ORDERED: PENDING SANTYL ORDER FOR WOUND CARE XX (03:30)
[2019-02-26 08:45] LABS: ABNORMAL IP MESSAGE 1; HEMATOCRIT 43.7 % (37.0-47.0); HEMOGLOBIN 13.3 g/dl (12.0-16.0); MEAN CORPUSCULAR HGB CONC 30.4 g/dl (32.0-37.0); MEAN CORPUSCULAR VOLUME 101.9 fl (82.0-101.0); MEAN PLATELET VOLUME 12.9 fl (7.4-10.4); PLATELET COUNT 93 10^3/UL (140-415); RED BLOOD COUNT 4.29 10^6/ul (4.20-5.40)
[2019-02-26 08:45] LABS: WHITE BLOOD COUNT 10.6 10^3/ul (4.8-10.8)
[2019-02-26 08:56] LABS: POSITIVE DIFF @See below
[2019-02-26 08:59] LABS: ADD MAN DIFF? YES
[2019-02-26 09:06] LABS: ANION GAP 16 (5-13); BLOOD UREA NITROGEN 34 mg/dl (7-20); CALCIUM 10.1 mg/dl (8.4-10.2); CARBON DIOXIDE 20 mmol/L (21-31); CHLORIDE 105 mmol/L (97-110); CREATININE 6.12 mg/dl (0.44-1.00); Estimated GFR 7 mL/min (>60); GLUCOSE 132 mg/dl (70-220); PHOSPHORUS 4.9 mg/dl (2.5-4.9); SODIUM 141 mmol/L (135-144)
[2019-02-26 09:13] LABS: POTASSIUM 6.1 mmol/L (3.5-5.1)
[2019-02-26 09:41] LABS: ANISOCYTOSIS 1+ (0-0); BAND NEUTROPHILS #M 0.2 10^3/ul (0.0-0.6); BAND NEUTROPHILS % (M) 2 % (0-4); BASOPHIL #M 0.1 10^3/ul (0.0-0.0); BASOPHILS % (M) 1 % (0-2); BURR CELLS 1+ (0-0); EOSINOPHILS % (M) 1 % (0-7); GIANT THROMBO% (M) 1 % (0-0); LYMPHOCYTES #M 2.3 10^3/ul (0.8-2.9); LYMPHOCYTES % (M) 22 % (15-51); MONOCYTE #M 0.5 10^3/ul (0.3-0.9); MONOCYTES % (M) 5 % (0-11); PLATELET ESTIMATE DECREASED; POIKILOCYTOSIS 2+ (0-0); SEG NEUT #M 7.3 10^3/ul (1.6-7.5); SEGMENTED NEUTROPHILS (M) % 69 % (39-77); SMUDGE%M 8 % (0-0)
[2019-02-26] MEDS: SODIUM POLYSTYRENE 15 GM KIT (POWDER + SORBITOL) PO ×2 (11:23→11:26)
[2019-02-26] MEDS: MUPIROCIN 2% 22 GM OINT TOP ×2 (11:24→20:27)
[2019-02-26] MEDS: RIFAMPIN IVPB ×2 (12:19→21:50)
[2019-02-26] MEDS: SOD CHLORIDE 0.9% IVPB ×2 (12:19→21:50)
[2019-02-26] MEDS: SOD CHLORIDE 0.45% 1,000 ML IV (16:46)
[2019-02-26 18:02] LABS: ANION GAP 15 (5-13); BLOOD UREA NITROGEN 36 mg/dl (7-20); CALCIUM 9.7 mg/dl (8.4-10.2); CARBON DIOXIDE 18 mmol/L (21-31); CHLORIDE 106 mmol/L (97-110); CREATININE 6.48 mg/dl (0.44-1.00); Estimated GFR 6 mL/min (>60); GLUCOSE 113 mg/dl (70-220); POTASSIUM 4.8 mmol/L (3.5-5.1); SODIUM 139 mmol/L (135-144)
[2019-02-27] MEDS: INSULIN ASPART [NOVOLOG] 3 ML PEN SC ×5 (01:00→20:17)
[2019-02-27] MEDS: ACCU-CHEK XX (01:14)
[2019-02-27 06:04] LABS: ADD MAN DIFF? NO
[2019-02-27 06:09] LABS: ABNORMAL IP MESSAGE 1; BASOPHIL # 0.1 10^3/ul (0.0-0.1); BASOPHILS % 0.6 % (0.0-2.0); EOSINOPHILS # 0.2 10^3/ul (0.0-0.5); EOSINOPHILS % 1.6 % (0.0-7.0); HEMATOCRIT 36.2 % (37.0-47.0); HEMOGLOBIN 11.2 g/dl (12.0-16.0); LYMPHOCYTES # 1.8 10^3/ul (0.8-2.9); LYMPHOCYTES % 16.8 % (15.0-51.0); MEAN CORPUSCULAR HEMOGLOBIN 31.4 pg (29.0-33.0); MEAN CORPUSCULAR HGB CONC 30.9 g/dl (32.0-37.0); MEAN CORPUSCULAR VOLUME 101.4 fl (82.0-101.0); MEAN PLATELET VOLUME 11.4 fl (7.4-10.4); MONOCYTE # 0.6 10^3/ul (0.3-0.9); MONOCYTES % 5.9 % (0.0-11.0); NEUTROPHIL # 7.9 10^3/ul (1.6-7.5); NEUTROPHILS % 74.4 % (39.0-77.0); PLATELET COUNT 95 10^3/UL (140-415); RED BLOOD COUNT 3.57 10^6/ul (4.20-5.40); RED CELL DISTRIBUTION WIDTH 16.7 % (11.5-14.5)
[2019-02-27 06:09] LABS: WHITE BLOOD COUNT 10.6 10^3/ul (4.8-10.8)
[2019-02-27 06:18] LABS: POSITIVE DIFF @See below
[2019-02-27 06:31] LABS: VANCOMYCIN,RANDOM 17.4 ug/ml
[2019-02-27 06:33] LABS: ANION GAP 14 (5-13); BLOOD UREA NITROGEN 38 mg/dl (7-20); CALCIUM 9.1 mg/dl (8.4-10.2); CARBON DIOXIDE 18 mmol/L (21-31); CHLORIDE 107 mmol/L (97-110); CREATININE 6.79 mg/dl (0.44-1.00); Estimated GFR 6 mL/min (>60); GLUCOSE 96 mg/dl (70-220); PHOSPHORUS 5.3 mg/dl (2.5-4.9); POTASSIUM 4.9 mmol/L (3.5-5.1); SODIUM 139 mmol/L (135-144)
[2019-02-27] MEDS: MUPIROCIN 2% 22 GM OINT TOP ×2 (08:42→20:14)
[2019-02-27] MEDS: SOD CHLORIDE 0.9% IVPB (08:45)
[2019-02-27] MEDS: RIFAMPIN IVPB (08:45)
[2019-02-27] MEDS: SOD CHLORIDE 0.45% 1,000 ML IV ×2 (12:30→18:30)
[2019-02-27] MEDS ORDERED: FENTAnyl 50 MCG/ML VIAL (12:39)
[2019-02-27] MEDS ORDERED: MIDAZOLAM 1 MG/ML 2 ML INJ ×2 (12:39)
[2019-02-27] MEDS ORDERED: PROPOFOL 20 ML (12:40)
[2019-02-27] MEDS ORDERED: FENTAnyl 50 MCG/ML VIAL IV (13:00)
[2019-02-27] MEDS ORDERED: EPHEDrine 25 MG/5 ML SYG IV (13:00)
[2019-02-27] MEDS ORDERED: LABETALOL HCL 20MG INJ IV (13:00)
[2019-02-27] MEDS ORDERED: MIDAZOLAM 1 MG/ML 2 ML INJ IV (13:00)
[2019-02-27] MEDS ORDERED: hydrALAzine 20 MG INJ IV (13:00)
[2019-02-27] MEDS ORDERED: DIPHENHYDRAMINE 50 MG INJ IV (13:00)
[2019-02-27] MEDS ORDERED: ALBUMIN HUMAN 5% 250 ML IV (13:00)
[2019-02-27] MEDS ORDERED: ONDANSETRON 4 MG INJ IV (13:00)
[2019-02-27] MEDS ORDERED: ALBUTEROL 0.083% (NEB) 2.5 MG/3 ML AMP HHN (13:00)
[2019-02-27] MEDS ORDERED: MEPERIDINE 25 MG INJ IV (13:00)
[2019-02-27] MEDS ORDERED: HEPARIN 1000 UNITS/ML 10 ML INJ (13:19)
[2019-02-27] MEDS ORDERED: CEFAZOLIN 1 GM/50 ML (PMX) 50 ML IVPB (13:19)
[2019-02-27] MEDS ORDERED: LIDOCAINE 1% (MDV) 20 ML INJ (13:19)
[2019-02-27] MEDS ORDERED: VANCOMYCIN 1 GM 250 ML IVPB (16:00)
[2019-02-27] MEDS ORDERED: INSULIN ASPART [NOVOLOG] 3 ML PEN SC (17:00)
[2019-02-27] MEDS: VANCOMYCIN 1 GM 250 ML IVPB (20:14)
[2019-02-27] MEDS: LORAZEPAM 2 MG INJ IV (22:13)
[2019-02-27] MEDS: ALBUMIN HUMAN 25% 50 ML IV (22:36)
[2019-02-28] MEDS: RIFAMPIN 600 MG in SOD CHLORIDE 0.9% 100 ML IVPB ×2 (01:24→22:07)
[2019-02-28] MEDS: HEPARIN 1000 UNITS/ML 10 ML INJ CATHETER ×2 (01:29→16:28)
[2019-02-28] MEDS: ACCU-CHEK XX (01:34)
[2019-02-28] MEDS: INSULIN ASPART [NOVOLOG] 3 ML PEN SC ×4 (07:25→21:00)
[2019-02-28] MEDS: MUPIROCIN 2% 22 GM OINT TOP ×2 (08:04→22:07)
[2019-02-28] MEDS: LORAZEPAM 2 MG INJ IV (13:49)
[2019-02-28] MEDS: SOD CHLORIDE 0.45% 1,000 ML IV (17:34)
[2019-03-01] MEDS: ACCU-CHEK XX (02:11)
[2019-03-01] MEDS: DEXTROSE 5%-0.45% NACL 1,000 ML IV (02:42)
[2019-03-01] MEDS: INSULIN ASPART [NOVOLOG] 3 ML PEN SC ×4 (07:25→21:45)
[2019-03-01] MEDS: MUPIROCIN 2% 22 GM OINT TOP ×2 (08:19→21:44)
[2019-03-01] MEDS: RIFAMPIN 600 MG in SOD CHLORIDE 0.9% 100 ML IVPB (21:43)
[2019-03-02] MEDS: ACCU-CHEK XX (02:31)
[2019-03-02] MEDS: DEXTROSE 5%-0.45% NACL 1,000 ML IV (02:55)
[2019-03-02] MEDS: INSULIN ASPART [NOVOLOG] 3 ML PEN SC ×4 (07:25→20:42)
[2019-03-02] MEDS: MUPIROCIN 2% 22 GM OINT TOP ×2 (09:06→20:34)
[2019-03-02] MEDS: HEPARIN 1000 UNITS/ML 10 ML INJ CATHETER (12:22)
[2019-03-03] MEDS: ACCU-CHEK XX (02:27)
[2019-03-03] MEDS: DEXTROSE 5%-0.45% NACL 1,000 ML IV (02:27)
[2019-03-03] MEDS: LORAZEPAM 2 MG INJ IV (04:18)
[2019-03-03] MEDS: MUPIROCIN 2% 22 GM OINT TOP (08:10)
[2019-03-03] MEDS: INSULIN ASPART [NOVOLOG] 3 ML PEN SC ×2 (08:33→11:20)
[2019-03-03] MEDS: QUETIAPINE 100 MG TAB PO (12:00)
[2019-03-03] MEDS: VANCOMYCIN 1 GM 250 ML IVPB (12:00)
== END 2019-03-03 14:30 | DRG 314 ==
LOC: ICU 02-23 03:32 → PP2 02-25 19:00 → 5EC 02-26 13:26 → E/R 06:17 → PP2 02-25 21:23 → TEL 02-26 18:25 → 5EC 10:05 → ICU 14:43
PROC: 02H633Z Insertion of Infusion Device into Right Atrium, Percutaneous Approach (ICD-10-PCS; 2019-02-27 12:30)
PROC: B514YZA Fluoroscopy of Left Jugular Veins using Other Contrast, Guidance (ICD-10-PCS; 2019-02-27 12:30)
PROC: 02PY33Z Removal of Infusion Device from Great Vessel, Percutaneous Approach (ICD-10-PCS; principal; 2019-02-27 12:50)
PROC: 02HV33Z Insertion of Infusion Device into Superior Vena Cava, Percutaneous Approach (ICD-10-PCS; 2019-02-27 12:50)
PROC: 5A1D70Z Performance of Urinary Filtration, Intermittent, Less than 6 Hours Per Day (ICD-10-PCS; 2019-02-27 12:50)
DX: T80.211A Bloodstream infection due to central venous catheter, initial encounter (principal); A41.02 Sepsis due to Methicillin resistant Staphylococcus aureus; N18.6 End stage renal disease; R65.21 Severe sepsis with septic shock; G92 Toxic encephalopathy; N39.0 Urinary tract infection, site not specified; K86.2 Cyst of pancreas; I12.0 Hypertensive chronic kidney disease with stage 5 chronic kidney disease or end stage renal disease; E87.1 Hypo-osmolality and hyponatremia; E87.2 Acidosis; I25.10 Atherosclerotic heart disease of native coronary artery without angina pectoris; E87.6 Hypokalemia; E83.9 Disorder of mineral metabolism, unspecified; E11.22 Type 2 diabetes mellitus with diabetic chronic kidney disease; F25.9 Schizoaffective disorder, unspecified; F03.90 Unspecified dementia, unspecified severity, without behavioral disturbance, psychotic disturbance, mood disturbance, and anxiety; D64.9 Anemia, unspecified; Z99.2 Dependence on renal dialysis
CPT/HCPCS: 36558; 36569; 36589; 71045; 74176; 76937; 80048; 80053; 80202; 81001; 82962; 83605; 83690; 83735; 84100; 85025; 85610; 85730; 87040-91; 87070; 87081; 87086; 87340; 90935; 92526; 92610; 93005; 93306; 96374; 96375; 97162; 99285-25